=== PATIENT | male | born 1960 | race Caucasian/White ===

== ENCOUNTER 2017-11-09 04:03 | Emergency (ER) | payer OTHER ==
[~2017-11-09] VITALS: Ht 167.6 cm; Wt 81.7 kg
[~2017-11-09 04:03] MED LIST: HYDACE25S PR; HYDACE5 PO; INDO50 PO; STOOL SOFTENER1 EAC1 PO
== END 2017-11-09 05:06 | disposition home or self-care (01) ==
LOC: ER 04:03
DX: S01.511A Laceration without foreign body of lip, initial encounter (principal); Z23 Encounter for immunization; F17.200 Nicotine dependence, unspecified, uncomplicated; W22.8XXA Striking against or struck by other objects, initial encounter
CPT/HCPCS: 12011; 90471; 90714; 99283

== ENCOUNTER → 2019-07-10 | Outpatient (CLI) | payer OTHER | END | disposition home or self-care (01) | LOC: LAB SHORT 13:28 → LAB 13:28 | DX: L08.9 Local infection of the skin and subcutaneous tissue, unspecified (principal) | CPT/HCPCS: 87070; 87075; 87077; 87186; 87205 ==